=== PATIENT | male | born 1935 | race Caucasian/White ===

== ENCOUNTER 2016-12-09 21:51 | Inpatient (IN) | payer MEDICARE, OTHER ==
[~2016-12-09] VITALS: Ht 177.8 cm; Wt 82.6 kg
[~2016-12-09 21:51] MED LIST: ATEN-51; SIMV20TA
[2016-12-09] MEDS ORDERED: ATEN-51 PO (22:03)
[2016-12-09] MEDS ORDERED: SIMV20TA PO (22:03)
[2016-12-09] MEDS ORDERED: RIVA20TA PO (22:03)
[2016-12-09] MEDS ORDERED: CARSR60 PO (22:04)
[2016-12-09] MEDS ORDERED: GABA300C16 PO (22:05)
[2016-12-09] MEDS ORDERED: NAPR-688 PO (22:05)
[2016-12-09] MEDS ORDERED: TRAM-40 PO (22:06)
[2016-12-09] MEDS ORDERED: MECL-77 PO (22:06)
[2016-12-09] MEDS ORDERED: ALBU90AE INHALATION (22:07)
[2016-12-09] MEDS ORDERED: ASPI-664 PO (22:07)
[2016-12-09 22:10] LABS: ADD SCAN DIFF NO
--- NOTE | 2016-12-09 22:10 | ERA ---
ER Documentation Chief Complaint Date/Time DATE: 12/09/16 TIME: 22:03 Chief Complaint Left side numbness around 2100 HPI 81 year old Male with a history of atrial flutter on Xarelto, hypertension, and TIA 4 years ago presenting with left-sided weakness and numbness that started about 45 minutes prior to arrival, at 2100. Initially had paresthesias and then started getting weak in the left upper and lower extremity. He denied any associated headache, fever, chills. No nausea or vomiting. No vision changes. Patient states that right now he feels much better and feels like his strength is back. He only complains of mild numbness in his left upper extremity. He denies chest pain or shortness of breath. He ran out of Xarelto about 2 days ago. Before that he was taking it regularly. ROS All systems reviewed and are negative except as per history of present illness. Medications Home Meds Reported Medications Dicyclomine Hcl* (Bentyl*) 10 Mg Capsule, 20 MG PO QID, CAP 12/09/16 Albuterol Sulfate (Proair Respiclick) 90 Mcg Aer.pow.ba, 2 PUFFS INHALATION Q6, #1 BOTTLE 12/09/16 Aspirin* (Aspirin* EC) 81 Mg Tablet.dr, 81 MG PO DAILY, TAB 12/09/16 Tramadol Hcl* (Ultram*) 50 Mg Tablet, 50 MG PO Q12 Y for PAIN, TAB 12/09/16 Meclizine Hcl* (Meclizine Hcl*) 25 Mg Tablet, 25 MG PO Q8H Y for DIZZINESS, TAB 12/09/16 Naproxen* (Naproxen*) 500 Mg Tablet, 500 MG PO BID, TAB 12/09/16 Gabapentin* (Gabapentin*) 300 Mg Capsule, 300 MG PO BID, #60 CAP 12/09/16 Diltiazem Hcl* (Cardizem SR*) 60 Mg Capsr, 60 MG PO QID, #60 CAP 12/09/16 Rivaroxaban* (Xarelto*) 20 Mg Tablet, 20 MG PO WITH DINNER, TAB 12/09/16 Simvastatin* (Zocor*) 20 Mg Tablet, 20 MG PO QHS, #30 TAB 12/09/16 Atenolol* (Atenolol*) 25 Mg Tablet, 25 MG PO DAILY, #30 TAB 12/09/16 Discontinued Reported Medications Simvastatin* (Zocor*) 20 Mg Tablet 01/03/10 Atenolol* (Atenolol*) 25 Mg Tablet 01/03/10 Allergies Allergies: Coded Allergies: levofloxacin (Verified Allergy, Mild, RASH, 12/09/16) PMhx/Soc History of Surgery: No Anesthesia Reaction: No Hx Neurological Disorder: Yes (TIA) Hx Respiratory Disorders: No Hx Cardiac Disorders: Yes (HTN HIGH CHOLESTEROL .PULMONARY FIRBOSIS. GLAUCOMA. ) Hx Psychiatric Problems: No Hx Miscellaneous Medical Probl: No Hx Alcohol Use: No Hx Substance Use: No Hx Tobacco Use: Yes (DAILY) FmHx Family History: No diabetes Physical Exam Vitals Vital Signs Date Time Temp Pulse Resp B/P Pulse Ox O2 Delivery O2 Flow Rate FiO2 12/09/16 21:55 98.4 88 20 127/88 100 Physical Exam Const: [] Head: Atraumatic Eyes: Normal Conjunctiva ENT: Normal External Ears, Nose and Mouth. Neck: Full range of motion..~ No meningismus. Resp: Clear to auscultation bilaterally Cardio: Regular rate and rhythm, no murmurs Abd: Soft, non tender, non distended. Normal bowel sounds Skin: No petechiae or rashes Back: No midline or flank tenderness Ext: No cyanosis, or edema Neur: Awake and alert Psych: Normal Mood and Affect Result Diagram: 12/09/160 12/09/16 220 Results 24 hrs Laboratory Tests Test 12/09/16 22:00 12/09/16 22:10 White Blood Count 10.010^3/ul Red Blood Count 5.2710^6/ul Hemoglobin 14.7g/dl Hematocrit 46.7% Mean Corpuscular Volume 88.6fl Mean Corpuscular Hemoglobin 27.9pg Mean Corpuscular Hemoglobin Concent 31.5g/dl Red Cell Distribution Width 21.4% Platelet Count 11465^3/UL Mean Platelet Volume 9.6fl Neutrophils % 73.0% Lymphocytes % 18.2% Monocytes % 6.6% Eosinophils % 0.4% Basophils % 0.2% Nucleated Red Blood Cells % 0.0/100WBC Neutrophils # 7.310^3/ul Lymphocytes # 1.810^3/ul Monocytes # 0.710^3/ul Eosinophils # 0.010^3/ul Basophils # 0.010^3/ul Nucleated Red Blood Cells # 0.010^3/ul Prothrombin Time 13.1Sec Prothrombin Time Ratio 1.0 INR International Normalized Ratio 0.99 Activated Partial Thromboplast Time 31.1Sec Sodium Level 139mmol/L Potassium Level 4.3mmol/L Chloride Level 103mmol/L Carbon Dioxide Level 31mmol/L Anion Gap 9 Blood Urea Nitrogen 38mg/dl Creatinine 1.29mg/dl Glucose Level 89mg/dl Calcium Level 8.5mg/dl Troponin I 0.030ng/ml Bedside Glucose 81mg/dL Current Medications Medications (Trade) Dose Ordered Sig/Mariano Route PRN Reason Start Time Stop Time Status Last Admin Dose Admin Ondansetron HCl (Zofran Inj) 4 mg ER BRIDGE PRN IV NAUSEA AND/OR VOMITING 12/10/16 00:00 12/10/16 23:59 Acetaminophen (Tylenol Tab) 650 mg ER BRIDGE PRN PO MILD PAIN/FEVER 12/10/16 00:00 12/10/16 23:59 Aspirin (Aspirin) 325 mg ONCE ONCE PO 12/10/16 00:00 12/10/16 00:01 Procedures/MDM Labs: No significant abnormalities other than mild elevation in BUN and creatinine EKG: Rate/Rhythm: Atrial fibrillation with normal rate QRS, ST, T-waves: [No changes consistent w/ acute ischemia] Impression: [No evidence of ischemia or arrhythmia] Patient's neurologic symptoms are concerning for acute TIA/stroke, infectious, or metabolic cause and will require inpatient workup and continuous monitoring. CT did not show any acute abnormalities. Chest x-ray showed possible signs of heart failure, however clinically the patient does not have signs of acute decompensated heart failure. aspirin was given. Further w/u for will be deferred to the inpatient team. Neuro Critical Care: Critical Care Time: 30 minutes Treatments/Evaluations: Continuous neurologic and cardiovascular monitoring for deterioration of neurologic function and complications, while obtaining immediate neurologic imaging. Considerations made for TPA and invasive therapy with discussions with family. TPA Criteria Assessment: Patient is not a TPA candidate because: rapidly improving symptoms Accepting Care Team: Current data and ongoing care discussed. Time: Time of admission Primary Provider: Brien Consulting: none Outstanding Data: none Departure Diagnosis: Primary Impression: Transient ischemic attack (TIA) Qualified Code: G45.9 - Transient cerebral ischemia, unspecified type Condition: Fair EKMEKJIAN,NELLIE R. MD Dec 09, 2016 22:09
[2016-12-09] MEDS ORDERED: DICY10CA60 PO (22:11)
[2016-12-09 22:21] LABS: BASOPHILS % 0.2 % (0.0-2.0); EOSINOPHILS % 0.4 % (0.0-7.0); HEMATOCRIT 46.7 % (42.0-52.0); HEMOGLOBIN 14.7 g/dl (14.0-18.0); LYMPHOCYTES # 1.8 10^3/ul (0.8-2.9); LYMPHOCYTES % 18.2 % (15.0-51.0); MEAN CORPUSCULAR HEMOGLOBIN 27.9 pg (29.0-33.0); MEAN CORPUSCULAR HGB CONC 31.5 g/dl (32.0-37.0); MEAN CORPUSCULAR VOLUME 88.6 fl (82.0-101.0); MEAN PLATELET VOLUME 9.6 fl (7.4-10.4); MONOCYTE # 0.7 10^3/ul (0.3-0.9); MONOCYTES % 6.6 % (0.0-11.0); NEUTROPHIL # 7.3 10^3/ul (1.6-7.5); PLATELET COUNT 161 10^3/UL (140-415); RED BLOOD COUNT 5.27 10^6/ul (4.70-6.10); RED CELL DISTRIBUTION WIDTH 21.4 % (11.5-14.5)
[2016-12-09 22:23] LABS: INR 0.99; PARTIAL THROMBOPLASTIN TIME 31.1 Sec (25.0-35.0); PROTIME 13.1 Sec (12.2-14.2)
[2016-12-09 22:25] LABS: CALCIUM 8.5 mg/dl (8.4-10.2); CREATININE 1.29 mg/dl (0.61-1.24); POTASSIUM 4.3 mmol/L (3.5-5.1)
[2016-12-09 22:38] LABS: TROPONIN-I 0.03 ng/ml (0.00-0.12)
--- NOTE | 2016-12-09 23:24 | RADRPT ---
PROCEDURE: CT Head without. CLINICAL INDICATION: Possible stroke. TECHNIQUE: The study was performed utilizing a multi-slice, multidetector CT scanner. Direct spira l 1 mm axial sections were obtained through the head without the use of intravenous contrast materia l. 1 or more of the following dose reduction techniques were utilized: Automated exposure control, adjustment of the mA and/or kV according to patient's size, iterative reconstruction technique. Co bryant and sagittal reformations were obtained. The images were reviewed on a PACS workstation. RADIATION DOSE: CTDIvol: 42.8 mGyDLP: 720.2 mGy-cm COMPARISON: No prior studies are available for comparison. FINDINGS: There is no intracranial hemorrhage, extra-axial fluid collection, mass lesion, midline shift or hyd rocephalus. There is mild to moderate prominence of the cerebral sulci, lateral and third ventricle s. There is moderate patchy periventricular and subcortical white matter hypodensity. There is mil d arteriosclerotic calcification of the parasellar internal carotid arteries. The apodaca-white matter differentiation is preserved. The basal cisterns are patent. The midline structures are intact. There is bilateral aphakia. The orbits, calvarium and extracranial soft tissues are normal in appea medhat. The visualized paranasal sinuses, mastoid air cells and middle ear cavities are normally aera gilbert. There is mild prominence of the cisterna magna, normal variant. IMPRESSION: 1. No acute intracranial abnormality. No intracranial hemorrhage, extra-axial fluid collection, ma ss lesion or hydrocephalous. 2. Mild to moderate peripheral and central cerebral volume loss. 3. Moderate patchy periventricular and subcortical white matter hypodensity, likely related to chlorine cells operator dread microangiopathic changes. The above findings were discussed with Patient's physician LAXMI Manuel by telephone on 2016 11:22:53 PM. RPTAT: HGAS .Vargas White MD, Date Time Electronically viewed and signed by .Vargas White MD, MD on 12/09/2016 23:23 .S/
--- NOTE | 2016-12-09 23:33 | RADRPT ---
PROCEDURE: XR Chest. CLINICAL INDICATION: Chest pain. Possible stroke TECHNIQUE: Portable AP upright view of the chest was obtained. COMPARISON: None available. FINDINGS: The cardiomediastinal silhouette is enlarged. Diffuse prominence of the pulmonary interstitium is s cattered throughout both lungs which may be fibrosis but interstitial edema is of concern. The diap hragm is mildly obscured likely related to small pleural effusions. The osseous structures are inta ct with no evidence for acute abnormality. Calcification of the aorta is seen. RPTAT:HJJR IMPRESSION: 1. Cardiac silhouette enlargement with diffuse interstitial edema and small bilateral pleural effus ions concerning for congestive heart failure in the proper clinical setting. 2. An element of interstitial fibrosis is difficult to exclude as this patient has no prior studies available. 3. Aortic atherosclerosis is present. Physician Madhavi Date Time Electronically viewed and signed by Physician Madhavi on 12/09/2016 23:32 /
[2016-12-10] VITALS (15 sets, daily range): BP systolic 94–137; BP diastolic 55–93; PULSE 67–129; RESP 15–20; TEMP 97.8; Ht 177.8 cm; Wt 82.6 kg
[2016-12-10] MEDS ORDERED: ASPIRIN 325 MG TAB PO ONE
[2016-12-10] MEDS ORDERED: ACETAMINOPHEN 325 MG TAB PO PRN
[2016-12-10] MEDS ORDERED: ONDANSETRON 4 MG INJ IV PRN ×2 (02:00)
[2016-12-10] MEDS: METOPROLOL 25 MG TAB PO SCH ×3 (02:09→20:49)
[2016-12-10] MEDS: ASPIRIN (EC) 81 MG TAB PO SCH (08:51)
[2016-12-10] MEDS ORDERED: HEPARIN 5,000 UNIT/0.5 ML VIAL SC SCH (09:00)
--- NOTE | 2016-12-10 09:09 | HP ---
Date/Time of Note Date/Time of Note DATE: 12/10/16 TIME: 08:57 Assessment/Plan VTE Prophylaxis VTE Prophylaxis Intervention: heparin Lines/Catheters IV [facility] Urinary Cath still in place: No Assessment/Plan Assessment/Plan IMPRESSION 1. Acute CVA 2. atrial flutter with RVR 3. COPD 4. Dyslipidemia 5. Interstitial fibrosis 6. Hx of Prostate cancer 7. Hypertension 8. Presumed JUD PLAN - Will obtain MRI of brain, 2D-echo, carotid doppler u/s - Aspirin, statin - Physical therapy - cont telemetry monitoring - Neurology and cardiology consult - Should allow permissive HTN unless BP is > 220/120 given stroke symptoms, however since in Aflutter with RVR, will start his on lopressor. Cardizem gtt and additional meds as needed - Currently no sign of respiratory distress. Breathng txt, steroid and pulm consult as needed given interstitial fibrosi and COPD - Avoid nephrotoxins, gentle hydration. Nephrology consult and renal u/s as needed HPI/ROS Admit Date/Time Admit Date/Time Dec 09, 2016 at 23:41 Hx of Present Illness 81 year old Male with a history of Prostate cancer, COPD, Dyslipidemia, interstitial fibrosis, atrial flutter on Xarelto, hypertension, and TIA 4 years ago presenting with left-sided weakness and numbness that started about 45 minutes prior to arrival, at 2100. Initially had paresthesias and then started getting weak in the left upper and lower extremity. He denied any associated headache, fever, chills. No nausea or vomiting. No vision changes. While in ER, patient states that he feels much better and feels like his strength is back , only complain being mild numbness in his left upper extremity. On my examination however, after admission to telemetry, he has significant weakness on left upper ext as compared to right. He denies chest pain or shortness of breath. He ran out of Xarelto a few days ago. Before that he was taking it regularly. CT head in ED was neg for infarct. CXR with diffuse interstial edema and interstitial fibrosis. . PMH/Family/Social Past Medical History Medical History: cancer, high cholesterol, hypertension, other (COPD) Social History Alcohol Use: none Smoking Status: Former smoker Drug Use: none Exam/Review of Systems Vital Signs Vitals Vital Signs Date Time Temp Pulse Resp B/P Pulse Ox O2 Delivery O2 Flow Rate FiO2 12/10/16 08:05 117 12/10/16 07:30 97.6 20 123/93 95 12/10/16 00:58 Room Air Intake and Output 12/09/16 12/09/16 12/10/16 15:00 23:00 07:00 Intake Total 60 ml Balance 60 ml Exam Constitutional: alert, oriented, well developed Head: atraumatic, normocephalic Eyes: EOMI, PERRL Respiratory: diminished breath sounds Cardiovascular: irregular rhythm Gastrointestinal: non-tender, soft Extremities: normal pulses Neurological: focal weakness, other (left arm weakness, sensationas are intact) Labs Result Diagram: 12/09/16219912/09/162199 Medications Medications Current Medications Metoprolol Tartrate (Lopressor) 25 mg BID PO Last administered on 12/10/16t 08: 51; Admin Dose 25 MG; Start 12/10/16 at 02:00 Aspirin (Halfprin) 81 mg DAILY PO ; Start 12/10/16 at 09:00 Atorvastatin Calcium (Lipitor) 40 mg HS PO ; Start 12/10/16 at 21:00 Heparin Sodium (Porcine) (Heparin (5000 Units/0.5 ml)) 5,000 unit Q12 SC ; Start 12/10/16 at 09:00 Acetaminophen (Tylenol Tab) 650 mg Q6H PRN PO PAIN AND OR ELEVATED TEMP; Start 12/10/16 at 02:00 Ondansetron HCl (Zofran Inj) 4 mg Q6H PRN IV NAUSEA AND/OR VOMITING; Start at 02:00 PREETHI ANGULO MD Dec 10, 2016 09:08
--- NOTE | 2016-12-10 10:04 | RADRPT ---
PROCEDURE: US Carotids. CLINICAL INDICATION: bruit , left sided weakness TECHNIQUE: Multiple sonographic of the carotid bifurcation region and vertebral arteries were obta ined utilizing apodaca scale, duplex and color-flow imaging. The images were reviewed on a PACS worksta tion. COMPARISON: No prior studies are available for comparison. FINDINGS: Evaluation of the right carotid bifurcation region reveals mild calcific atherosclerotic disease. th ere is a stent noted in the right proximal ICA. Evaluation of the left carotid bifurcation region reveals mild calcific atherosclerotic disease. . There is a 28% stenosis in the left proximal ICA. There is antegrade flow within the vertebral arteries bilaterally. RIGHT CAROTID MEASUREMENTS: Common Carotid Agzuoy76.7 (cm/sec) Internal Carotid Artery - rszfotla19.9 (cm/sec) Internal Carotid Artery - mid33.8 (cm/sec) Internal Carotid Artery - olkkox72.3 (cm/sec) Internal Carotid/Common Carotid0.95 LEFT CAROTID MEASUREMENTS: Common Carotid Vvhhhp01.9 (cm/sec) Internal Carotid Artery - bvunqhes70.2 (cm/sec) Internal Carotid Artery - mid65.4 (cm/sec) Internal Carotid Artery - vjscya59.4 (cm/sec) Internal Carotid/Common Carotid1.22 RPTAT: AA IMPRESSION: No evidence for hemodynamically significant stenosis in the bilateral internal carotid arteries - va lidated velocity measurements with angiographic measurements, velocity criteria are extrapolated fro m diameter data as defined by the Society of Radiologists in Ultrasound Consensus Conference Radiolo gy 2003; 229;340-346. This study does indirectly reference the measurement of the distal ICA diamet er as the denominator for stenosis measurement. Normal antegrade flow in the vertebral arteries bilaterally. .Jaret Jacobsen MD, Date Time Electronically viewed and signed by .Jaret Jacobsen MD, MD on 12/10/2016 10:04 .S/
[2016-12-10] MEDS: ACETAMINOPHEN 325 MG TAB PO PRN ×2 (11:10→20:51)
[2016-12-10] MEDS: APIXABAN 5 MG TABLET PO SCH ×3 (11:11→20:49)
[2016-12-10] MEDS: DILTIAZEM 60 MG TAB PO SCH ×4 (11:11→20:48)
--- NOTE | 2016-12-10 13:35 | RADRPT ---
Echocardiogram Report Patient Name: JUDITH JAMESON Gender: Male Date: 1935 Study Date: 10-Dec-2016 Strategic Manager: Candy Humphries [facility] Location: 5538 Ref. Physician: PREETHI ANGULO Quality: Adequate Procedures: Transthoracic echocardiogram with complete 2D, M-Mode, and doppler examination. Indications: Atrial Flutter. Transient Ischemic Attack. 2D/M Mode Doppler Measurement Value Normal Ranges Measurement Value Normal Ranges LVIDd 2D 4.3 3.5 - 5.6 cm AV Peak Jim 1.1 m/sec LVIDs 2D 2.6 2.1 - 4.1 cm AV Peak PG 4.5 mmHg LVPWd 2D 1.1 0.6 - 1.1 cm LVOT Peak Jim 0.7 m/sec IVSd 2D 1.1 0.6 - 1.1 cm LVOT Peak PG 1.9 mmHg AoR Diam 2D 2.9 2.0 - 3.7 cm TR Peak Jim 2.7 m/sec EDV 2D 83.9 cm3 TR Peak PG 30.1 mmHg ESV 2D 17.8 cm3 RVSP 38.0 mmHg LA Dimen 2D 4.3 2.3 - 4.0 cm Findings Left Ventricle: Normal left ventricular cavity size. Mild concentric left ventricular hypertrophy. Ejection fraction is visually estimated at 4550 %. Right Ventricle: Normal right ventricular size. Moderate right ventricular systolic dysfunction. Left Atrium: There is moderate enlargement of left atrium. Right Atrium: There is moderate enlargement of right atrium. Mitral Valve: Mild mitral annular calcification. Mild mitral valve regurgitation. Aortic Valve: No significant aortic stenosis or insufficiency. Aortic cusps appear mildly calcified. Tricuspid Valve: Normal appearance of the tricuspid valve. Estimated peak PA systolic pressure 38 mmHg. There is moderate tricuspid regurgitation. Pulmonic Valve: Normal pulmonic valve appearance. There is trace pulmonic regurgitation. Pericardium: Normal pericardium with no significant pericardial effusion. Aorta: Normal aortic root. IVC: Dilated IVC with respiratory collapse consistent with elevated right atrial pressure. Conclusions 1.Normal left ventricular cavity size. Mild concentric left ventricular hypertrophy. Ejection fraction is visually estimated at 45-50 %. 2.Mild mitral valve regurgitation. 3.Moderate biatrial enlargement. 4.Estimated peak PA systolic pressure 38 mmHg based on RA pressure of 8 mmHg. Electronically Signed By: Yoshi Erickson 10-Dec-2016 13:34:42 -0700 Patient Name: JUDITH JAMESON Study Date: 10-Dec-[id number]
[2016-12-10] MEDS: ATORVASTATIN 40 MG TAB PO SCH (20:48)
[2016-12-11] VITALS (11 sets, daily range): BP systolic 106–147; BP diastolic 56–75; PULSE 68–122; RESP 17–20
[2016-12-11 07:13] LABS: ADD SCAN DIFF NO
[2016-12-11 07:20] LABS: BASOPHILS % 0.1 % (0.0-2.0); EOSINOPHILS # 0.1 10^3/ul (0.0-0.5); HEMOGLOBIN 14.3 g/dl (14.0-18.0); LYMPHOCYTES # 2.7 10^3/ul (0.8-2.9); LYMPHOCYTES % 23.4 % (15.0-51.0); MEAN CORPUSCULAR HEMOGLOBIN 27.9 pg (29.0-33.0); MEAN CORPUSCULAR HGB CONC 31.8 g/dl (32.0-37.0); MEAN CORPUSCULAR VOLUME 87.9 fl (82.0-101.0); MEAN PLATELET VOLUME 10.1 fl (7.4-10.4); MONOCYTE # 0.8 10^3/ul (0.3-0.9); MONOCYTES % 6.9 % (0.0-11.0); NEUTROPHIL # 7.8 10^3/ul (1.6-7.5); NEUTROPHILS % 67.2 % (39.0-77.0); PLATELET COUNT 148 10^3/UL (140-415); RED BLOOD COUNT 5.12 10^6/ul (4.70-6.10); RED CELL DISTRIBUTION WIDTH 21.2 % (11.5-14.5); WHITE BLOOD COUNT 11.6 10^3/ul (4.8-10.8)
[2016-12-11 07:35] LABS: ALBUMIN 2.9 g/dl (3.3-4.9)
[2016-12-11 07:36] LABS: POTASSIUM 3.5 mmol/L (3.5-5.1)
[2016-12-11 07:38] LABS: ALBUMIN/GLOBULIN RATIO 1.07; BILIRUBIN,INDIRECT 1.5 mg/dl (0-1.1); BILIRUBIN,TOTAL 1.5 mg/dl (0.2-1.3); CREATININE 1.12 mg/dl (0.61-1.24); TOTAL PROTEIN 5.6 g/dl (6.1-8.1)
[2016-12-11 07:39] LABS: CALCIUM 8.5 mg/dl (8.4-10.2)
[2016-12-11 07:40] LABS: CHOL/HDL RATIO 2.4 RATIO
[2016-12-11] MEDS: APIXABAN 5 MG TABLET PO SCH ×2 (08:37→20:50)
[2016-12-11] MEDS: METOPROLOL 25 MG TAB PO SCH ×2 (08:37→20:51)
[2016-12-11] MEDS: ASPIRIN (EC) 81 MG TAB PO SCH (08:37)
[2016-12-11] MEDS: DILTIAZEM 60 MG TAB PO SCH ×4 (08:37→20:50)
--- NOTE | 2016-12-11 08:49 | RADRPT ---
PROCEDURE: MR BRAIN WITHOUT CONTRAST CLINICAL INDICATION: Transient ischemic attack. Left-sided weakness. TECHNIQUE: An MRI of the brain was performed on a high field scanner utilizing the following seque nces: Sagittal T1, axial FSE T2, axial FLAIR, sagittal FLAIR, axial gradient echo, axial gradient echo, axial T1 and axial EPI diffusion (b1000) with ADC maps. The images reviewed on a PACS workstat ion. COMPARISON: CT scan of the brain dated 12/09/2016 which demonstrated atrophy, microangiopathic isc hemic change, and no acute abnormality. FINDINGS: There is moderate degree of diffuse cortical and central atrophy with compensatory ventricular enlar gement. There is no mass effect or midline shift. There are mild periventricular and deep white matter foci of abnormal signal intensity on the T2-noe ghted and FLAIR sequences consistent with microangiopathic ischemic changes. There is a region of restricted diffusion in the right parietal lobe posteriorly measuring 1.1 x 3.2 cm in AP and transverse dimensions consistent with an acute infarct. This is high in signal intensi ty on the diffusion weighted images and low in signal intensity on the apparent diffusion coefficien t images. There is no other region of restricted diffusion within the brain to suggest infarct else where. The visualized paranasal sinuses are without abnormal soft tissue. The orbits are grossly normal. IMPRESSION: 1. Mild diffuse atrophy. 2. Microangiopathic ischemic changes. 3. Acute infarct in the right parietal lobe posteriorly in a region measuring 1.1 x 3.2 cm. 4. Otherwise unremarkable study. Call report: A call report of the findings was made to Dr. Valencia on 12/11/2016 at 0840 hours. RPTAT: QQ .Martin Cedeno MD, Date Time Electronically viewed and signed by .Martin Cedeno MD, on 12/11/2016 08:49 .R/
--- NOTE | 2016-12-11 17:50 | PN ---
Date/Time of Note Date/Time of Note DATE: 12/11/16 TIME: 17:42 Assessment/Plan VTE Prophylaxis VTE Prophylaxis Intervention: other Lines/Catheters IV [facility] Peripheral IV Urinary Cath still in place: No Assessment/Plan Chief Complaint/Hosp Course 1. Acute CVA Continue aspirin, statin MRI shows Acute infarct in the right parietal lobe posteriorly in a region measuring 1.1 x 3.2 cm Carotid ultrasound shows no evidence of significant stenosis PT eval and acute rehab evaluation 2. History of atrial flutter with RVR-stable Continue diltiazem and metoprolol Continue Eliquis 3. COPD-able 4. CHF-euvolemic Echo shows EF is 45-50% 5. Interstitial fibrosis 6. Hx of Prostate cancer 7. Hypertension-stable Continue metoprolol and diltiazem 8. Presumed JUD-resolved Dispo: Patient would benefit from acute rehab, eval pending Prophylaxis: Eliquis Problems: Subjective 24 Hr Interval Summary Constitutional: no complaints Exam/Review of Systems Vital Signs Vitals Vital Signs Date Time Temp Pulse Resp B/P Pulse Ox O2 Delivery O2 Flow Rate FiO2 12/11/16 16:28 68 12/11/16 15:59 97.9 17 111/66 94 12/10/16 00:58 Room Air Intake and Output 12/10/16 12/10/16 12/11/16 15:00 23:00 07:00 Intake Total 960 ml 200 ml Balance 960 ml 200 ml Exam Constitutional: alert Respiratory: clear to auscultation Cardiovascular: regular rate and rhythm Gastrointestinal: soft, No distended Musculoskeletal: nl extremities to inspection Results Result Diagram: 12/11/16 0635 12/11/16 0635 Results 24 hrs Laboratory Tests Test 12/11/16 06:35 12/11/16 06:55 White Blood Count 11.6 H Red Blood Count 5.12 Hemoglobin 14.3 Hematocrit 45.0 Mean Corpuscular Volume 87.9 Mean Corpuscular Hemoglobin 27.9 L Mean Corpuscular Hemoglobin Concent 31.8 L Red Cell Distribution Width 21.2 H Platelet Count 148 Mean Platelet Volume 10.1 Neutrophils % 67.2 Lymphocytes % 23.4 Monocytes % 6.9 Eosinophils % 1.0 Basophils % 0.1 Nucleated Red Blood Cells % 0.0 Neutrophils # 7.8 H Lymphocytes # 2.7 Monocytes # 0.8 Eosinophils # 0.1 Basophils # 0.0 Nucleated Red Blood Cells # 0.0 Sodium Level 140 Potassium Level 3.5 Chloride Level 101 Carbon Dioxide Level 30 Anion Gap 13 Blood Urea Nitrogen 33 H Creatinine 1.12 Glucose Level 83 Calcium Level 8.5 Magnesium Level 2.1 Total Bilirubin 1.5 H Direct Bilirubin 0.00 Indirect Bilirubin 1.5 H Aspartate Amino Transf (AST/SGOT) 21 Alanine Aminotransferase (ALT/SGPT) 42 Alkaline Phosphatase 44 Total Protein 5.6 L Albumin 2.9 L Globulin 2.70 Albumin/Globulin Ratio 1.07 Triglycerides Level 104 Cholesterol Level 98 L LDL Cholesterol, Calculated 37 HDL Cholesterol 40 Cholesterol/HDL Ratio 2.4 Hemoglobin A1c 5.9 Medications Medications Current Medications Metoprolol Tartrate (Lopressor) 25 mg BID PO Last administered on 12/11/16 08: 37; Admin Dose 25 MG; Start 12/10/16 at 02:00 Aspirin (Halfprin) 81 mg DAILY PO Last administered on 12/11/16 08:37; Admin Dose 81 MG; Start 12/10/16 at 09:00 Atorvastatin Calcium (Lipitor) 40 mg HS PO Last administered on 12/10/16 20:48 ; Admin Dose 40 MG; Start 12/10/16 at 21:00 Acetaminophen (Tylenol Tab) 650 mg Q6H PRN PO PAIN AND OR ELEVATED TEMP Last administered on 12/10/16 20:51; Admin Dose 650 MG; Start 12/10/16 at 02:00 Ondansetron HCl (Zofran Inj) 4 mg Q6H PRN IV NAUSEA AND/OR VOMITING; Start at 02:00 Diltiazem HCl (Cardizem) 60 mg QID PO Last administered on 12/11/16 17:27; Admin Dose 60 MG; Start 12/10/16 at 10:00 Apixaban (Eliquis) 2.5 mg BID PO Last administered on 12/11/16 08:37; Admin Dose 2.5 MG; Start 12/10/16 at 10:00 MARIA DEL ROSARIO HAZEL Dec 11, 2016 17:50
[2016-12-11] MEDS: ATORVASTATIN 40 MG TAB PO SCH (20:50)
[2016-12-12] VITALS (13 sets, daily range): BP systolic 106–137; BP diastolic 56–83; PULSE 66–150; RESP 15–20
[2016-12-12 07:18] LABS: ADD SCAN DIFF NO
[2016-12-12 07:28] LABS: BASOPHILS % 0.1 % (0.0-2.0); EOSINOPHILS # 0.1 10^3/ul (0.0-0.5); EOSINOPHILS % 0.7 % (0.0-7.0); HEMATOCRIT 44.9 % (42.0-52.0); HEMOGLOBIN 14.5 g/dl (14.0-18.0); LYMPHOCYTES # 2.1 10^3/ul (0.8-2.9); LYMPHOCYTES % 20.2 % (15.0-51.0); MEAN CORPUSCULAR HGB CONC 32.3 g/dl (32.0-37.0); MEAN CORPUSCULAR VOLUME 86.7 fl (82.0-101.0); MEAN PLATELET VOLUME 10.4 fl (7.4-10.4); MONOCYTE # 0.7 10^3/ul (0.3-0.9); MONOCYTES % 7.1 % (0.0-11.0); NEUTROPHIL # 7.4 10^3/ul (1.6-7.5); NEUTROPHILS % 70.8 % (39.0-77.0); PLATELET COUNT 151 10^3/UL (140-415); RED BLOOD COUNT 5.18 10^6/ul (4.70-6.10); RED CELL DISTRIBUTION WIDTH 20.7 % (11.5-14.5); WHITE BLOOD COUNT 10.4 10^3/ul (4.8-10.8)
[2016-12-12 07:40] LABS: CALCIUM 8.3 mg/dl (8.4-10.2); CREATININE 0.88 mg/dl (0.61-1.24); POTASSIUM 3.9 mmol/L (3.5-5.1)
[2016-12-12] MEDS: APIXABAN 5 MG TABLET PO SCH ×2 (09:16→21:20)
[2016-12-12] MEDS: ASPIRIN (EC) 81 MG TAB PO SCH (09:17)
[2016-12-12] MEDS: METOPROLOL 25 MG TAB PO SCH ×2 (09:17→21:18)
[2016-12-12] MEDS: DILTIAZEM 60 MG TAB PO SCH ×4 (09:17→21:20)
--- NOTE | 2016-12-12 10:53 | PN ---
Date/Time of Note Date/Time of Note DATE: 12/12/16 TIME: 10:51 Assessment/Plan VTE Prophylaxis VTE Prophylaxis Intervention: other (Eliquis) Lines/Catheters IV C[facility]ter Type (from [facility]): Peripheral IV Urinary Cath still in place: No Assessment/Plan Assessment/Plan 1. Acute CVA Continue aspirin, statin MRI shows Acute infarct in the right parietal lobe posteriorly in a region measuring 1.1 x 3.2 cm Carotid ultrasound shows no evidence of significant stenosis PT eval and acute rehab evaluation 2. History of atrial flutter with RVR- HR upto 150s, on Cardizem 60mg QID, on MTP 25 mg BID , eliquis for anticoagulation 3. COPD-able 4. CHF-euvolemic Echo shows EF is 45-50% 5. Interstitial fibrosis 6. Hx of Prostate cancer 7. Hypertension-stable Continue metoprolol and diltiazem 8. Presumed JUD-resolved Dispo: Patient would benefit from acute rehab, eval pending Prophylaxis: Eliquis Subjective 24 Hr Interval Summary Free Text/Dictation pt HR went upto 150s, Bp stable, afebrile, On cardizem and MTP for rate control Exam/Review of Systems Vital Signs Vitals Vital Signs Date Time Temp Pulse Resp B/P Pulse Ox O2 Delivery O2 Flow Rate FiO2 12/12/16 09:44 150 12/12/16 07:58 97.7 19 114/56 98 12/12/16 00:00 Room Air Intake and Output 12/11/16 12/11/16 12/12/16 15:00 23:00 07:00 Intake Total 1200 ml 300 ml Balance 1200 ml 300 ml Exam Constitutional: alert Respiratory: clear to auscultation Cardiovascular: regular rate and rhythm Gastrointestinal: soft, No distended Musculoskeletal: nl extremities to inspection Results Result Diagram: 12/12/16 0548 12/12/16 0548 Results 24 hrs Laboratory Tests Test 12/12/16 05:48 White Blood Count 10.4 Red Blood Count 5.18 Hemoglobin 14.5 Hematocrit 44.9 Mean Corpuscular Volume 86.7 Mean Corpuscular Hemoglobin 28.0 L Mean Corpuscular Hemoglobin Concent 32.3 Red Cell Distribution Width 20.7 H Platelet Count 151 Mean Platelet Volume 10.4 Neutrophils % 70.8 Lymphocytes % 20.2 Monocytes % 7.1 Eosinophils % 0.7 Basophils % 0.1 Nucleated Red Blood Cells % 0.0 Neutrophils # 7.4 Lymphocytes # 2.1 Monocytes # 0.7 Eosinophils # 0.1 Basophils # 0.0 Nucleated Red Blood Cells # 0.0 Sodium Level 137 Potassium Level 3.9 Chloride Level 106 Carbon Dioxide Level 27 Anion Gap 8 Blood Urea Nitrogen 24 H Creatinine 0.88 Glucose Level 95 Calcium Level 8.3 L Medications Medications Current Medications Metoprolol Tartrate (Lopressor) 25 mg BID PO Last administered on 12/12/16 09: 17; Admin Dose 25 MG; Start 12/10/16 at 02:00 Aspirin (Halfprin) 81 mg DAILY PO Last administered on 12/12/16 09:17; Admin Dose 81 MG; Start 12/10/16 at 09:00 Atorvastatin Calcium (Lipitor) 40 mg HS PO Last administered on 12/11/16 20:50 ; Admin Dose 40 MG; Start 12/10/16 at 21:00 Acetaminophen (Tylenol Tab) 650 mg Q6H PRN PO PAIN AND OR ELEVATED TEMP Last administered on 12/10/16 20:51; Admin Dose 650 MG; Start 12/10/16 at 02:00 Ondansetron HCl (Zofran Inj) 4 mg Q6H PRN IV NAUSEA AND/OR VOMITING; Start at 02:00 Diltiazem HCl (Cardizem) 60 mg QID PO Last administered on 12/12/16 09:17; Admin Dose 60 MG; Start 12/10/16 at 10:00 Apixaban (Eliquis) 2.5 mg BID PO Last administered on 12/12/16 09:16; Admin Dose 2.5 MG; Start 12/10/16 at 10:00 RENZO LOPEZ MD Dec 12, 2016 10:53
[2016-12-12] MEDS ORDERED: LOPERAMIDE 2 MG CAP PO PRN (11:00)
[2016-12-12] MEDS ORDERED: LOPERAMIDE 2 MG CAP PO ONE (11:00)
[2016-12-12] MEDS: ATORVASTATIN 40 MG TAB PO SCH (21:19)
[2016-12-13] VITALS (11 sets, daily range): BP systolic 112–134; BP diastolic 63–72; PULSE 65–148; RESP 18–20
[2016-12-13] MEDS: APIXABAN 5 MG TABLET PO SCH (08:37)
[2016-12-13] MEDS: ASPIRIN (EC) 81 MG TAB PO SCH (08:38)
[2016-12-13] MEDS: METOPROLOL 25 MG TAB PO SCH (08:38)
[2016-12-13] MEDS: DILTIAZEM 60 MG TAB PO SCH ×2 (08:38→13:39)
[2016-12-13] MEDS ORDERED: traMADol 50 MG TAB PO PRN (11:30)
--- NOTE | 2016-12-13 11:37 | PN ---
Date/Time of Note Date/Time of Note DATE: 12/13/16 TIME: 11:35 Assessment/Plan VTE Prophylaxis VTE Prophylaxis Intervention: other (eliquis) Lines/Catheters IV Catheter Type (from [facility]): Saline Lock Assessment/Plan Assessment/Plan 1. Acute CVA Continue aspirin, statin MRI shows Acute infarct in the right parietal lobe posteriorly in a region measuring 1.1 x 3.2 cm Carotid ultrasound shows no evidence of significant stenosis PT eval and acute rehab evaluation 2. History of atrial flutter with RVR- HR upto 150s, on Cardizem 60mg QID, on MTP 25 mg BID , eliquis for anticoagulation 3. COPD-able 4. CHF-euvolemic Echo shows EF is 45-50% 5. Interstitial fibrosis 6. Hx of Prostate cancer 7. Hypertension-stable Continue metoprolol and diltiazem 8. Presumed JUD-resolved Dispo: pt refused to go to rehab, he wants to go to home, ambulate with assistance, will arrange home health on discharge if he continues to refuse to go to rehab Prophylaxis: Eliquis Subjective 24 Hr Interval Summary Free Text/Dictation no acute events, BP stable, afebrile Exam/Review of Systems Vital Signs Vitals Vital Signs Date Time Temp Pulse Resp B/P Pulse Ox O2 Delivery O2 Flow Rate FiO2 12/13/16 08:01 75 12/13/16 08:00 Nasal Cannula 2.0 12/13/16 07:23 97.8 18 134/72 97 Intake and Output 12/12/16 12/12/16 12/13/16 15:00 23:00 07:00 Intake Total 600 ml 500 ml Output Total 800 ml 850 ml Balance -200 ml -350 ml Exam Constitutional: alert Respiratory: clear to auscultation Cardiovascular: regular rate and rhythm Gastrointestinal: soft, No distended Musculoskeletal: nl extremities to inspection Results Result Diagram: 12/12/16 0548 12/12/16 0548 Medications Medications Current Medications Metoprolol Tartrate (Lopressor) 25 mg BID PO Last administered on 12/13/16 08: 38; Admin Dose 25 MG; Start 12/10/16 at 02:00 Aspirin (Halfprin) 81 mg DAILY PO Last administered on 12/13/16 08:38; Admin Dose 81 MG; Start 12/10/16 at 09:00 Atorvastatin Calcium (Lipitor) 40 mg HS PO Last administered on 12/12/16 21:19 ; Admin Dose 40 MG; Start 12/10/16 at 21:00 Acetaminophen (Tylenol Tab) 650 mg Q6H PRN PO PAIN AND OR ELEVATED TEMP Last administered on 12/10/16 20:51; Admin Dose 650 MG; Start 12/10/16 at 02:00 Ondansetron HCl (Zofran Inj) 4 mg Q6H PRN IV NAUSEA AND/OR VOMITING; Start at 02:00 Diltiazem HCl (Cardizem) 60 mg QID PO Last administered on 12/13/16 08:38; Admin Dose 60 MG; Start 12/10/16 at 10:00 Apixaban (Eliquis) 2.5 mg BID PO Last administered on 12/13/16 08:37; Admin Dose 2.5 MG; Start 12/10/16 at 10:00 Loperamide HCl (Imodium Cap) 2 mg QID PRN PO DIARRHEA; Start 12/12/16 at 11:00 RENZO LOPEZ MD Dec 13, 2016 11:37
--- NOTE | 2016-12-13 11:41 | PN ---
Date/Time of Note Date/Time of Note DATE: 12/13/16 TIME: 11:38 Assessment/Plan VTE Prophylaxis VTE Prophylaxis Intervention: other (Eliquis ) Lines/Catheters IV Catheter Type (from [facility]): Saline Lock Assessment/Plan Assessment/Plan 1. Acute CVA Continue aspirin, statin MRI shows Acute infarct in the right parietal lobe posteriorly in a region measuring 1.1 x 3.2 cm Carotid ultrasound shows no evidence of significant stenosis PT eval and acute rehab evaluation 2. History of atrial flutter with RVR- HR upto 150s, on Cardizem 60mg QID, on MTP 25 mg BID , eliquis for anticoagulation 3. COPD-able 4. CHF-euvolemic Echo shows EF is 45-50% 5. Interstitial fibrosis 6. Hx of Prostate cancer 7. Hypertension-stable Continue metoprolol and diltiazem 8. Presumed JUD-resolved Dispo: pt refused to go to rehab, he wants to go to home, ambulate with assistance, will arrange home health on discharge if he continues to refuse to go to rehab Prophylaxis: Marly pt diagnosis acute CVA involving Right posterior parietal Lobe, He lives with his girlfriend/ at home. he refused to go to Rehab. he needs assistance with ambulation, PT, medication and RN visit for home safety evaluation to assess for fall risk Face to face assessment done on 12/13/2016 He needs education about his new medications started for atrial fibrillation including Eliquis blood thinner we will set up home health for PT, RN visit, home safety evaluation and medication education. Subjective 24 Hr Interval Summary Free Text/Dictation c/o back pain, has been requesting to use tramadol at home Exam/Review of Systems Vital Signs Vitals Vital Signs Date Time Temp Pulse Resp B/P Pulse Ox O2 Delivery O2 Flow Rate FiO2 12/13/16 08:01 75 12/13/16 08:00 Nasal Cannula 2.0 12/13/16 07:23 97.8 18 134/72 97 Intake and Output 12/12/16 12/12/16 12/13/16 15:00 23:00 07:00 Intake Total 600 ml 500 ml Output Total 800 ml 850 ml Balance -200 ml -350 ml Exam Constitutional: alert Respiratory: clear to auscultation Cardiovascular: regular rate and rhythm Gastrointestinal: soft, No distended Musculoskeletal: nl extremities to inspection Results Result Diagram: 12/12/16 0548 12/12/16 0548 Medications Medications Current Medications Metoprolol Tartrate (Lopressor) 25 mg BID PO Last administered on 12/13/16 08: 38; Admin Dose 25 MG; Start 12/10/16 at 02:00 Aspirin (Halfprin) 81 mg DAILY PO Last administered on 12/13/16 08:38; Admin Dose 81 MG; Start 12/10/16 at 09:00 Atorvastatin Calcium (Lipitor) 40 mg HS PO Last administered on 12/12/16 21:19 ; Admin Dose 40 MG; Start 12/10/16 at 21:00 Acetaminophen (Tylenol Tab) 650 mg Q6H PRN PO PAIN AND OR ELEVATED TEMP Last administered on 12/10/16 20:51; Admin Dose 650 MG; Start 12/10/16 at 02:00 Ondansetron HCl (Zofran Inj) 4 mg Q6H PRN IV NAUSEA AND/OR VOMITING; Start at 02:00 Diltiazem HCl (Cardizem) 60 mg QID PO Last administered on 12/13/16 08:38; Admin Dose 60 MG; Start 12/10/16 at 10:00 Apixaban (Eliquis) 2.5 mg BID PO Last administered on 12/13/16 08:37; Admin Dose 2.5 MG; Start 12/10/16 at 10:00 Loperamide HCl (Imodium Cap) 2 mg QID PRN PO DIARRHEA; Start 12/12/16 at 11:00 RENZO LOPEZ MD Dec 13, 2016 11:40
--- NOTE | 2016-12-13 11:42 | PDOCDIS ---
Discharge Instructions CONDITION Patient Condition: Good HOME CARE INSTRUCTIONS: Special Diet: low fat low chol ACTIVITY: Activity Restrictions: Slowly Increase Activity Rest between Activity Avoid heavy lifting Avoid Heavy Housework FOLLOW UP/APPOINTMENTS Appointments follow up with Dr.Kalpesh Lopez in 1-2 week after discharge. Follow up by Home health upon discharge RENZO LOPEZ MD Dec 13, 2016 11:42
[2016-12-13] MEDS ORDERED: METO-448 PO (11:46)
[2016-12-13] MEDS ORDERED: ATOR40TA68 PO (11:46)
[2016-12-13] MEDS ORDERED: MECL-77 PO (11:46)
--- NOTE | 2016-12-13 23:20 | DS ---
DATE OF ADMISSION: 12/09/2016 DATE OF DISCHARGE: 12/13/2016 FINAL DISCHARGE DIAGNOSES: 1. Acute cerebrovascular accident involving the right parietal lobe. 2. History of atrial flutter with rapid ventricular rate. Currently rate controlled with Cardizem, metoprolol. Eliquis for anticoagulation. 3. History of chronic obstructive pulmonary disease. 4. History of congestive heart failure with ejection fraction 45% to 50%, chronic, systolic and elsy stolic. 5. History of pulmonary interstitial fibrosis. 6. History of prostate cancer. 7. History of hypertension. 8. Acute kidney injury secondary to prerenal azotemia, resolved. HOSPITAL COURSE: This is an 81-year-old male who has a past medical history of hypertension, histor y of prostate cancer, history of pulmonary interstitial fibrosis, COPD, history of CHF with ejection fraction 45% to 50%, history of atrial flutter who presented with a complaint of left-sided weaknes s. The patient was admitted for possible TIA versus stroke. He had an initial CT head without cont rast negative, but his MRI shows acute infarcts in the right parietal lobe. The patient had atrial flutter with rapid ventricular rate with heart rate up to 150. He was started on Cardizem 60 mg p.o . q.i.d. along with metoprolol 25 mg p.o. b.i.d. The patient was also continued on Eliquis for anti coagulation. At home, he was on Xarelto for anticoagulation. The patient's home medication was inc luding atenolol, which was stopped, and he was switched to the metoprolol for better heart rate cont rol. He remained hemodynamically stable. He refused to go to the acute rehabilitation. He needs a ssistance with ambulation, PT, medications, and a visit for home safety evaluation to assess for fal l risk. He was set up for home health on discharge. DISPOSITION: To home with home health. DISCHARGE CONDITION: Stable and improved compared to admission. DISCHARGE ACTIVITIES: As tolerated, slowly resume to the normal baseline activity. DISCHARGE DIET: Low fat, low sodium cardiac diet. DISCHARGE MEDICATIONS: As per medical reconciliation. He is given new prescriptions of: 1. Lipitor 40 mg p.o. at bedtime. He was switched from Zocor to Lipitor. 2. He was switched from atenolol to metoprolol 25 mg p.o. b.i.d. 3. He was advised to continue the Xarelto for anticoagulation for his atrial flutter. He has been explained about the discharge plan and followup instructions. He understood and verbali zed understanding. The patient is to be followed up by primary care service through his health care navigator's insurance. Dictated By: RENZO LOPEZ MD, KP/RICHARDSON Conf#: [id number] DID#: [id number] CC: PREETHI ANGULO MD;*EndCC*
== END 2016-12-13 17:16 | disposition home health service (06) | DRG 65 ==
LOC: E/R 21:51 → MS4 23:41
PROVIDERS: ADMIT Internal Medicine; ATTEND Internal Medicine
DX: I63.9 Cerebral infarction, unspecified (principal); I48.92 Unspecified atrial flutter; N17.9 Acute kidney failure, unspecified; G81.94 Hemiplegia, unspecified affecting left nondominant side; I11.0 Hypertensive heart disease with heart failure; I50.42 Chronic combined systolic (congestive) and diastolic (congestive) heart failure; J44.9 Chronic obstructive pulmonary disease, unspecified; J84.10 Pulmonary fibrosis, unspecified; E78.5 Hyperlipidemia, unspecified; Z85.46 Personal history of malignant neoplasm of prostate
CPT/HCPCS: 36415; 70450; 70551; 71010; 80048; 80053; 80061; 82962; 83036; 83735; 84484; 85025; 85610; 85730; 93005; 93306; 93880; 97162; J1644